=== PATIENT | female | born 1985 | race Caucasian/White ===

== ENCOUNTER 2017-08-22 11:30 | Emergency (ER) | payer OTHER ==
[2017-08-22] MEDS: DEXAMETHASONE 10 MG/ML 1 ML INJ IM (13:28)
[2017-08-22] MEDS: IPRATROPIUM (NEB) 0.5 MG/2.5 ML AMP NEB (13:43)
[2017-08-22] MEDS: ALBUTEROL 0.5% (NEB) 2.5 MG/0.5 ML AMP INH (13:43)
== END 2017-08-22 15:00 | disposition home or self-care (01) ==
LOC: E/R 11:30 → FTE 15:00
DX: J06.9 Acute upper respiratory infection, unspecified (principal); F17.210 Nicotine dependence, cigarettes, uncomplicated
CPT/HCPCS: 71045; 94644; 96372; 99284-25

== ENCOUNTER 2017-11-10 05:00 | Emergency (ER) | payer OTHER | END 2017-11-10 05:40 | disposition home or self-care (01) | LOC: FTE 05:00 | DX: A08.4 Viral intestinal infection, unspecified (principal); F17.210 Nicotine dependence, cigarettes, uncomplicated | CPT/HCPCS: 99284; Z7502 ==

== ENCOUNTER 2018-06-13 06:44 | Emergency (ER) | payer OTHER ==
[2018-06-13] MEDS: DEXAMETHASONE 10 MG/ML 1 ML INJ IM (07:20)
[2018-06-13] MEDS: ALBUTEROL 0.083% (NEB) 2.5 MG/3 ML AMP HHN (07:24)
[2018-06-13] MEDS: IPRATROPIUM (NEB) 0.5 MG/2.5 ML AMP HHN (07:24)
== END 2018-06-13 07:55 | disposition home or self-care (01) ==
LOC: FTE 06:44
DX: R06.2 Wheezing (principal); F17.210 Nicotine dependence, cigarettes, uncomplicated
CPT/HCPCS: 94664; 96372; 99284-25